=== PATIENT | male | born 1970 | race Caucasian/White ===

== ENCOUNTER 2021-12-15 14:25 | Observation (INO) | payer BC, SELFPAY ==
[2021-12-15] VITALS (13 sets, daily range): BP systolic 142–221; BP diastolic 73–122; PULSE 56–73; RESP 14–20; TEMP 36.6–36.8; O2SAT 95–100; BMI 29.9
--- NOTE | ~2021-12-15 | XR_ITS ---
EXAMINATION: XR chest 1V portable 12/15/2021 15:12 INDICATION: Hypertension PROCEDURE: AP portable chest COMPARISON: 08/13/2011 FINDINGS: The lungs are clear. The cardiomediastinal silhouette is within normal limits. There are no pleural effusions. There is no pneumothorax suspected. IMPRESSION: 1: NO ACUTE CARDIOPULMONARY DISEASE. Reviewed, dictated and finalized at location A.
--- NOTE | ~2021-12-15 | CT_ITS ---
EXAMINATION: CTA BRAIN/CAROTID DATE: 12/15/2021 16:08 INDICATION: Right-sided numbness TECHNIQUE: Computed tomographic angiography (CTA) of the head and neck was performed with 100 mL Omni paque-350 intravenous contrast. Multiplanar reconstructions and maximum intensity projection 3D-recon structions of the carotid arteries and of the intracranial arteries were created by the technologist on a separate workstation. Precontrast CT of the head was also obtained. Automated exposure control and iterative reconstruction technique were employed.The dose-length product was 1890.71 mGy-cm. COMPARISON: None. FINDINGS: Carotid arteries: Visualized portion of the thoracic arch and the portion of the great vessels appear normal with no at herosclerotic plaque or dissection. No atherosclerotic plaque with 0% stenosis of the right and left carotid bulbs relative to normal distal artery lumen diameter (NASCET criteria). Cervical soft tissue s are unremarkable. Mild cervical spondylosis. Visualized airway and bilateral upper lungs are clear. Head: No acute intracranial hemorrhage, acute infarction or abnormal extra axial fluid collection. Ventricl es are normal and symmetric. No mass/mass effect. Mild mucosal thickening in the paranasal sinuses. T he orbits and mastoid air cells are normal. No abnormally enhancing brain lesions. Intracranial arteries Minimal nonhemodynamically significant atherosclerotic plaque at the critical portions of the bilater al intracranial internal carotid arteries. There is no hemodynamically significant stenosis in the ve rtebral, basilar and internal carotid arteries. Left vertebral artery is dominant. There are no aneur ysms identified. Both A1 and P1 segments are patent. Cerebral arterial arborization appears symmetr ic. IMPRESSION: 1. 0% stenosis of the right and left carotid bulbs relative to normal distal artery lumen diameter (N ASCET criteria). 2. No acute intracranial process. 3. Unremarkable cerebral CT angiogram with no aneurysm, dissection or significant stenosis. Reviewed, dictated and finalized at location B. IMPRESSION: 1. 0% stenosis of the right and left carotid bulbs relative to normal distal ar [place] lumen diameter (NASCET criteria). 2. No acute intracranial process. 3. Unremarkable cerebral CT angiogram with no aneurysm, dissection or significa nt stenosis.
--- NOTE | ~2021-12-15 | MR_ITS ---
EXAMINATION: MR brain/brain stem wo con DATE: 12/16/2021 10:48 INDICATION: Paresthesias. TECHNIQUE: Magnetic resonance imaging (MRI) of the brain and brainstem was performed without intraven ous contrast. COMPARISON: Head CT 12/15/2021 FINDINGS: There is no intracranial hemorrhage, acute infarction, or abnormal intracranial mass lesion . The ventricles are normal in size. There is mild mucosal thickening in the paranasal sinuses. The o rbits are normal. The mastoid air cells are normal. IMPRESSION: 1. Normal brain. Reviewed, dictated and finalized at location A. IMPRESSION: 1. Normal brain.
--- NOTE | 2021-12-15 14:55 | ECG_ITS ---
Measurements Intervals [place] Rate: 56 P: 7 MS: 119 QRS: -19 QRSD: 96 T: 30 QT: 440 QTc: 425 Interpretive Statements SINUS BRADYCARDIA WITH SHORT MS INTERVAL DELAYED PRECORDIAL R/S TRANSITION BASELINE WANDER- I, II BORDERLINE ECG Electronically Signed On 12-15-2021 17:21:56 CDT by Jose Orozco D.O.
--- NOTE | 2021-12-15 14:58 | ED.NEUROSD ---
HPI - Neuro Symptoms/Deficit General Chief Complaint: Neuro Symptoms/Deficit Stated Complaint: tingling and numbness in arms and lips Time Seen by Provider: 12/15/21 14:40 Source: patient, RN notes reviewed and old records reviewed Mode of arrival: ambulatory Limitations: no limitations History of Present Illness HPI Narrative: This is a 51 year old male who presents for evaluation of body tingling. Patient states he has been having intermittent episodes of tingling. He states 1 week ago he had tingling both arms and both legs. HE states this last 3-4 minutes. He has had 2 similar episodes today, but he reports tingling is more on his right arm. He states he had an episode 1 hour ago when he was at urgent care. He reported having tingling around his mouth and right arm tingling. He denies having new headache, dizziness, blurred vision, chest pain, sob, abdominal pain. He denies having associated weakness with his tingling. His symptoms have completely resolved now. He has been found to be hypertensive in ER and he states his BP is usually normal in 130s. He denies family history of heart disease, or aneursym Onset (ago): week(s) Associated symptoms: denies other symptoms Related Data Allergies Allergy/AdvReac Type Severity Reaction Status Date / Time No Known Allergies Allergy Unverified 12/15/21 14:42 Review of Systems Review of Systems: All systems reviewed & are unremarkable except as noted in HPI and below Constitutional: Constitutional: Denies chills, Denies fatigue and Denies fever(s) ENT: Denies dysphagia and Denies epistaxis Cardiovascular: Cardiovascular: Denies chest pain, Denies rapid heart rate and Denies radiating jaw, neck or arm pain Respiratory: Respiratory: Denies chest congestion, Denies cough and Denies dyspnea Gastrointestinal: Gastrointestinal: Denies abdominal pain, Denies bloating, Denies constipation and Denies heartburn Musculoskeletal: Musculoskeletal: Denies muscle cramps Neurologic: Denies confusion, Denies dizziness, Denies headache(s), Denies focal weakness and Reports numbness PMFSH Past Medical History Medical History (Updated 12/15/21 @ 18:48 by Marla Hale MD) Patient denies medical problems Family History Family History (Updated 08/24/17 @ 13:59 by DOCTOR UNKNOWN) Father Family history of transient ischemic attacks Family history of heart disease in male family member before age 55 Grandparent Family history of heart disease in male family member before age 55, Onset Age: 60 Mother Asthma Other Family history of alcoholism Social History Social History Smoking status: Never smoker Alcohol intake: current Exam Narrative: GENERAL: Well-appearing, well-nourished, and in no acute distress. HEAD: Normocephalic, atraumatic EYES: PERRLA and EOMI, conjunctiva clear without discharge EARS: TM's clear bilaterally without erythema or dullness NOSE: Nares clear, no rhinorrhea or epistaxis THROAT:Mucous membranes moist, Oropharynx normal without erythema, exudate, peritonsillar swelling or fluctuance NECK: Supple, without lymphadenopathy or mass RESPIRATORY: No respiratory distress, Airway patent, Respirations non-labored, Clear to auscultation without rales, rhonchi or wheeze HEART: Regular rate and rhythm. No murmur heard. Normal peripheral pulses. ABDOMEN: Soft, nontender, nondistended, normal active bowel sounds. No masses. No rebound or guarding, No organomegaly. EXTREMITIES: No edema, normal strength with full range of motion. SKIN: Warm, dry, normal color without rash NEURO: Alert and oriented x3. CN 2-12 grossly intact. No focal deficits. PSYCH: Normal mood and affect. Course Reevaluation(s) Reevaluation #1: I Discussed with patient that he will be admitted for uncontrolled hypertension. HE does not have symptoms now. I discussed with jose who accepts patient to hospitalist service on IMU. Will start amlodop
[2021-12-15] MEDS: hydrALAZINE HCL 20 MG/ML VIAL 10 MG IV PUSH ×2 (15:13→17:19)
[2021-12-15 15:30] LABS: Basophils Percent Auto 0.5 % (0.2-1.2); Eosinophils Absolute Auto 0.2 K/mm3 (0-0.3); Eosinophils Percent Auto 2.6 % (0-4.4); Hematocrit 48.6 % (42.0-52.0); Hemoglobin 16.5 g/dL (14.0-18.0); Immature Granulocyte Absolute 0.01 K/mm3 (0.00-0.031); Immature Granulocyte Percent A 0.2 % (0-0.5); Lymphocytes Absolute Auto 1.75 K/mm3 (0.9-3.2); Lymphocytes Percent Auto 26.9 % (18.3-44.2); Mean Corpuscular Hemoglobin 31.4 pg (26-34); Mean Corpuscular Volume 92.4 fl (80-100); Monocytes Absolute Auto 0.5 K/mm3 (0.1-0.6); Monocytes Percent Auto 7.1 % (2.6-8.5); Neutrophils Absolute Auto 4.1 K/mm3 (1.3-6.7); Neutrophils Percent Auto 62.7 % (45.5-73.1); Platelet Count Result 164 k/mm3 (150-375); Red Blood Count 5.26 M/mm3 (4.6-6.20); Red Cell Distribution Width 12.4 % (11.5-14.5); White Blood Count 6.5 K/mm3 (4.5-10.0)
[2021-12-15 15:37] LABS: Alanine Aminotransferase 31 U/L (6-50); Albumin Level 4.7 g/dL (3.5-5.1); Alkaline Phosphatase 58 U/L (38-126); Anion Gap 8 mmol/L (8-16); Aspartate Amino Transferase 30 U/L (17-59); Bilirubin,Total 1.8 mg/dL (0.2-1.3); Blood Urea Nitrogen 17 mg/dL (9-20); Calcium 8.9 mg/dL (8.4-10.2); Carbon Dioxide 26 mmol/L (22-30); Chloride 107 mmol/L (98-107); Estimated CRCL calculation 100 ml/min; Estimated Glomerular Filt Rate > 60; Glucose 91 mg/dL (65-110); Magnesium 1.9 mg/dL (1.6-2.3); Potassium 4.1 mmol/L (3.4-5.0); Sodium 141 mmol/L (137-145)
[2021-12-15 15:39] LABS: INR 1.1; Prothrombin Time 13.5 Seconds (11.1-14.7)
[2021-12-15 15:40] LABS: Partial Thromboplastin Time 26.4 SECONDS (22.3-36.8)
[2021-12-15 15:41] LABS: Glucose Point of Care 94 mg/dl (65-105)
[2021-12-15 15:52] LABS: Troponin I 0.042 ng/mL (0.000-0.034)
[2021-12-15 15:54] LABS: Appearance Urine Clear (Clear); Bilirubin Urine Negative (Negative); Blood Urine Negative (Negative); Color Urine Yellow (Yellow); Glucose Urine UA Negative (Negative); Ketones Urine 2+ mg/dL (Negative); Leukocyte Esterase Ur Negative LEU/UL (Negative); Nitrate Urine Negative (Negative); Protein Urine Negative (Negative); Specific Grav Ur 1.025 (1.001-1.035); Urobilinogen Urine 0.2 mg/dL (<2.0)
[2021-12-15 15:57] LABS: Bacteria Urine Trace /hpf; Mucus Urine Rare /lpf; WBC Urine 0-3 /hpf
[2021-12-15 15:58] LABS: Add Urine Microscopic? YES
[2021-12-15 16:08] LABS: Amphetamine Screen Urine Negative (Negative); Barbiturate Screen Urine Negative (Negative); Benzodiazepines Screen Urine Negative (Negative); Cannabinoid Screen Urine Negative (Negative); Cocaine Screen Urine Negative (Negative); Methadone Screen Urine Negative (Negative); Opiate Screen Urine Negative (Negative); Phencyclidine Screen Urine Negative (Negative)
[2021-12-15] MEDS: amLODIPine BESYLATE 5 MG TABLET 10 MG PO (17:17)
[2021-12-15] MEDS: ASPIRIN 81 MG CHEWABLE TABLET 324 MG PO (17:17)
--- NOTE | 2021-12-15 19:36 | PC.NURSE ---
Dr Hale aware of elevated BP.
[2021-12-15] MEDS: LABETALOL HCL INJ 100 MG/20 ML VIAL 20 MG IV PUSH (19:38)
--- NOTE | 2021-12-15 20:08 | PM.IMHP ---
H&P: HPI History of Present Illness Date/Time: 12/15/21 20:08 Chief Complaint: Numbness Narrative: This is a 51-year-old male with past medical history significant for hypertension, patient presents to the emergency room due to several episodes of numbness and tingling in of his right arm and around his mouth. Upon presentation to the emergency room patient was found to have a systolic blood pressure above 200. At the time of my visit patient had a headache he had received several medications in the emergency room for his blood pressure, denied numbness and tingling sensation at that time, according to patient he has been in his usual state of health up until last week when he started having these episodes on and he decided to go to the urgent care where he was asked to come to the emergency room for further evaluation. Patient denies any chest pain, shortness of breath, had some dizziness, denies any vision changes, denies syncope, near syncope, denies any leg swelling or ankle swelling, denies cough, sputum production, fever, rigors, chills, denies palpitations, denies chest pain or discomfort. Preliminary workup was significant for slight elevation of troponins. Patient has been admitted for further evaluation, management and treatment. Review of Systems Review of Systems: Patient presents to the emergency room after episode of numbness, tingling, in his arms, and around his mouth, chest discomfort. Constitutional: Constitutional: Denies chills, Denies fever(s) and Denies night sweats ENT: Denies dysphagia, Denies vertigo, Denies dizziness, Denies nasal congestion, Denies nasal discharge, Denies nasal obstruction, Denies neck pain and Denies odynophagia Cardiovascular: Cardiovascular: Denies chest pain, Denies syncope, Denies pedal edema, Denies irregular heart rhythm, Denies claudication, Denies lightheadedness, Denies radiating jaw, neck or arm pain, Denies palpitations and Denies dyspnea on exertion Respiratory: Respiratory: Denies chest congestion, Denies cough, Denies pain on inspiration and Denies dyspnea Gastrointestinal: Gastrointestinal: Denies abdominal pain, Denies dyspepsia, Denies heartburn, Denies nausea and Denies vomiting Genitourinary: Genitourinary: Denies dysuria Musculoskeletal: Musculoskeletal: Denies arthralgias, Denies limited range of motion and Denies muscle weakness Integumentary/Breasts: Skin/Breast: Denies rash Neurologic: Denies focal weakness, Reports numbness (Bilateral upper extremities arms hands fingers), Reports tingling and Reports paresthesias Psychiatric: Psychiatric: Reports no additional psychiatric complaints and Reports as per HPI Endocrine: Endocrine: Denies cold intolerance, Denies fatigue, Denies flushing, Denies heat intolerance, Denies polyphagia, Denies polydipsia and Denies palpitations Hematologic/Lymphatic: Hematologic/Lymphatic: Reports no additional hematologic/lymphatic complaints and Reports as per HPI Allergic/Immunologic: Allergic/Immunologic: Reports no additional allergic/immunologic complaints and Reports as per HPI PMFSH Past Medical History Medical History (Updated 12/16/21 @ 04:33 by Susie Vazquez MD) Patient denies medical problems Family History Family History (Updated 12/15/21 @ 20:57 by Fabi Reyes RN) Father Family history of transient ischemic attacks Family history of heart disease in male family member before age 55 Grandparent Family history of heart disease in male family member before age 55, Onset Age: 60 Mother Asthma Sibling Hypertension Other Family history of alcoholism Social History Social History Smoking status: Never smoker Alcohol intake: current Drinks per week: 14 Substance use: never Spiritual care concerns: No Meds Home Medications and Allergies Home Medications Medication Instructions Recorded Confirmed Type omeprazole 40 mg capsule,delayed 40 cap PO DAILY 12/15/21
[2021-12-15 21:20] LABS: Troponin I 0.068 ng/mL (0.000-0.034)
--- NOTE | 2021-12-15 21:23 | ADMGEN ---
This patient, Jerman Bass, was admitted to IMU Room 214-01 at 2044. Patient/family oriented to hospital policies and general routines including ID bracelet, bed and alarms, visiting hours, pain management, procedures, bathroom and other care routines, personal items, smoking policy, room service/diet, and visiting hours. Information on how to activate the Rapid Response Team has been discussed. Patient/Family are encouraged to report perceived risks to care and to ask questions if they do not understand what they are told or what they should do.
[2021-12-15 23:18] LABS: Troponin I 0.081 ng/mL (0.000-0.034)
[2021-12-16] VITALS (11 sets, daily range): BP systolic 117–149; BP diastolic 51–91; PULSE 56–74; RESP 18; TEMP 36.3–36.7; O2SAT 97–99
--- NOTE | 2021-12-16 | ECHO_ITS ---
Patient Info Name: Jerman Bass Age: 51 years : 1970 Gender: Male Ht: 70 in Wt: 208 lbs BSA: 2.18 m2 HR: 57 bpm BP: 117 / 51 mmHg Heart Rhythm: Sinus Rhythm Technical Quality: Fair Exam Date: 12/16/2021 8:11 AM Exam Location: [facility] Patient Status: Outpatient Admit Date: 12/15/2021 Staff Ordering Physician: Susie Vazquez MD Ocular Care Technician: Mikayla Correa RDCS Attending Provider: Jonathan Vaca MD Referring Physician: Taylor MENDIOLA; Exam Type: CA echo doppler color flow Study Info Indications - Uncontrolled HTN Complete two-dimensional, color flow and Doppler transthoracic echocardiogram is performed. Summary 1. Complete two-dimensional, color flow and Doppler transthoracic echocardiogram is performed. 2. There is mild pulmonic regurgitation. 3. Otherwise normal examination. Left Ventricle Left ventricular chamber dimension is normal. Left ventricular systolic function is hyperdynamic, estimated at >70%. The left ventricular diastolic function is normal. Right Ventricle Right ventricular chamber dimension is normal. Left Atria Left atrial chamber dimension is normal. Right Atria Right atrial chamber dimension is normal. Aortic Valve The aortic valve is normal. Pulmonic Valve The pulmonic valve is normal. There is mild pulmonic regurgitation. Mitral Valve The mitral valve has normal leaflets. Tricuspid Valve The tricuspid valve leaflets are normal. Pericardium/Pleural The pericardium appears normal. Aorta The aortic root size at the sinus of Valsalva is normal. Left Ventricular Outflow Tract Name Value Normal LVOT 2D LVOT Diameter 2.0 cm LVOT Doppler LVOT Peak Gradient 7 mmHg LVOT Mean Gradient 4 mmHg LVOT VTI 30 cm LVOT VTI/AV VTI Ratio 0.9 LVOT Stroke Volume 90 ml LVOT CO 5.1 l/min LVOT CI 2.4 l/min/m2 Pulmonic Valve Name Value Normal RVOT Doppler RVOT Peak Gradient 3 mmHg PV Doppler PV Peak Gradient 5 mmHg Mitral Valve Name Value Normal MV Doppler MV Decel [place] 285 cm/s2 MV PHT 70 ms MV Area (PHT) 3.1 cm2 4.0-5.0 MV Diastolic Function
--- NOTE | 2021-12-16 09:31 | PM.CNCAR ---
Assessment and Plan Assessment and plan (1) Elevated troponin: Code(s): R77.8 - Other specified abnormalities of plasma proteins Status: Acute Plan This is a 51-year-old patient who presents with symptoms of tingling/paresthesias intermittently for a number of days. The symptoms are not suggestive of or indicative of myocardial ischemia in my opinion. His electrocardiogram shows no ischemic changes his troponin levels were done as I described above they are slightly out of normal range but not in a pattern typical or indicative of ACS. His echocardiogram was done this morning because of these symptoms which is appropriate the results of that are not available as I dictate this note. I think it is also very important that his carotid arteries are exam and these could be symptoms of carotid disease. He does not require in my opinion a workup for ischemic heart disease. Did have a negative coronary angiogram as he stated above about 9 or 10 years ago. If you have further questions regarding this opinion in the troponin results please let me know at this point I will not plan on following this gentleman unless there are further cardiac questions Minor Mane MD [facility] History of Present Illness History of Present Illness Consult date/time: 12/16/21 09:31 Reason For Visit: Troponinemia Narrative: This is a 51-year-old man that I am seeing at the request of the hospitalist because of troponin levels that were sampled and were found to be out of normal range. The patient has no history of ischemic heart disease and came to the hospital because of intermittent symptoms of the sense of tingling/paresthesias that began recently. He had an episode last week that he describes the sense of strange paresthesias in both upper extremities, across the chest into the face and into the lower extremities. This lasted for a short time and resolve without further treatment or intervention. Yesterday he had 2 episodes of this that were different in the sense that they were in the right upper extremity and into the face in the perioral region. Each of episode lasted for several minutes. Because of this he went to an urgent care center and they directed him apparently to the emergency department where he was evaluated and admitted. His admitting electrocardiogram was unremarkable. For reasons that are not obvious troponin levels were done x3 sets they are slightly elevated but essentially flat from 0.04-0.08. He is not having any sense of chest pain chest pressure or heaviness he is a gentleman who does not exercise in any structured way but with physical activity he has not noticed that chest discomfort has ever been a problem. He has been feeling well since being admitted. He normally sees his PCP and really only has hypertension as his only significant medical problem for which he takes carvedilol and terazocin. He is compliant with his medication and states that his blood pressure is generally well controlled. He denies any history of dyslipidemia or diabetes. He states he did have a cardiac evaluation about 9 or 10 years ago when he had some symptoms of occasional palpitations and intermittent chest discomfort. He states that he was seen by my partner, Dr. Dial who performed a coronary angiogram on him over at [facility] which was unremarkable. Since admission here an echocardiogram has been ordered and performed this morning of course the results of that are pending at the time I dictate this note. He also has carotid artery Dopplers ordered that have not yet been done. Review of Systems Constitutional: Constitutional: Reports no additional constitutional complaints Eyes: Eyes: Reports no additional eye complaints ENT: Reports system reviewed and no additional complaints, except as documented Cardiovascular: Cardiovascular: Reports as per HPI Respiratory: Respiratory: Reports no additional respiratory complaints Gastroi
[2021-12-16] MEDS: carvediloL 25 MG TABLET PO (10:23)
[2021-12-16] MEDS: PANTOPRAZOLE 40 MG TABLET PO (10:23)
[2021-12-16] MEDS: TERAZOSIN HCL 5 MG CAPSULE PO (10:23)
--- NOTE | 2021-12-16 12:50 | PM.DS ---
DS: Admitting Diagnosis Discharge Date 12/16/21 Admitting Diagnosis Body tingling DS: Discharge Diagnosis Discharge Diagnosis (1) Hypertensive emergency without congestive heart failure: Code(s): I16.1 - Hypertensive emergency Status: Acute (2) Elevated troponin: Code(s): R77.8 - Other specified abnormalities of plasma proteins Status: Acute (3) TIA (transient ischemic attack): Code(s): G45.9 - Transient cerebral ischemic attack, unspecified Status: Acute DS: Summary Hospital Course Reason for hospitalization: 51yo male with HTN here for body tingling and found to have a blood pressure 221/122. Please see H&P for details Hospital Course: Patient presents to the emergency room with complaints tingling in his arms and legs. Symptoms have been going on for about a week. Symptoms usually last about 3-4 minutes. He does have high blood pressure has been compliant with his home medications. He last took his blood pressure about 3 months ago with a systolic about 150. He does not adhere to a DASH diet. In the ED, patient's blood pressure was elevated to as high as 221/122. EKG showed sinus bradycardia rate of 56 with a short NV interval and delayed precordial transition. CBC was normal. CMP was normal except for a total bilirubin 1.8. Troponin was elevated to 0.081. Urinalysis showed 2+ ketones otherwise negative. Urine drug screen was negative. Chest x-ray was clear. CTA of the head and neck showed 0% stenosis of the right and left carotid bulbs and there was no acute intracranial process. Specifically no aneurysms, dissection or significant stenosis. Brain MRI was normal. Echocardiogram was normal as well. Patient was treated with hydralazine, amlodipine and labetalol. He was given aspirin. Blood pressure dropped to 117/51. Patient feels well. Cardiology was consulted did not recommend any further cardiac evaluation regarding the elevated troponins. The elevated troponins most likely related to the severe hypertension. Patient does have anxiety related to his work but states that his presenting symptoms occurred when he was relaxed. Symptoms were associated with headache and feeling flushed but no tachycardia, palpitations, tremors, shortness of breath or weakness. Patient is low risk for pheochromocytoma but is agreeable for 24 hour urine collection to exclude this diagnosis. This can be performed at home. Mild hyperbilirubinemia most likely related to [place]. Will defer to the primary care doctor for further evaluation regarding the elevated bilirubin level. He has no abdominal pain or other concerning symptoms to suggest gallbladder disease. We will continue his home medications at discharge. Will be sent home with losartan and was instructed only to uses if his blood pressure gets above 180 systolic. He is to check his blood pressure 2 to 3 times per day at various times, record and bring into his doctor for review. He voices understanding of this. He has had an abnormal sleep study last year and wears a dental appliance. Consider uncontrolled apnea causing uncontrolled blood pressure and will defer to his PCP. Status at Discharge Cognitive/behavioral status at discharge: Stable Time Spent with Patient Time attestation: Total time spent providing and/or coordinating discharge services: 35 minutes Exam Narrative: AF 97.5 117/87 74 18 99% ra Gen - NARD Chest - CTA bilaterally, nml RR CV - RRR S1/S2. Tele showing no significant dysrhythmias Abd - Soft, NT/ND, Positive BS Ext - No pedal edema Neuro - Alert and oriented. Nonfocal exam. Psych - Nml mood and affect Skin - Warm and dry DS: Data Data Completed and Pending Labs on day of discharge: Labs from last 24 hours 12/15/21 12/15/21 12/15/21 22:45 20:37 15:38 WBC RBC Hgb Hct MCV MCH MCHC RDW Plt Count MPV Immature Gran % (Auto) Neut % (Auto) L
== END 2021-12-16 15:14 | disposition home or self-care (01) ==
LOC: ANHED 18:48 → ANHIMU 20:44
PROVIDERS: Emergency Medicine; Admitting Provider Internal Medicine; Emergency Provider General Practice; PCP Nurse Practitioner Family; Visit Provider Internal Medicine
DX: G45.9 Transient cerebral ischemic attack, unspecified (principal); I16.1 Hypertensive emergency; R77.8 Other specified abnormalities of plasma proteins; I10 Essential (primary) hypertension; R20.2 Paresthesia of skin
CPT/HCPCS: 36415; 70496; 70498; 70551; 71045; 80053; 80307; 81001; 82948; 83735; 84484; 85025; 85610; 85730; 93005; 93306; 96374; 96375; 96376; 99285; A9270; G0378; J0360; Q9967

== ENCOUNTER 2021-12-18 12:37 | Outpatient (CLI) | payer BC, SELFPAY ==
[2021-12-18 13:20] LABS: Total Volume 24 Hour Urine 1300 ml
[2021-12-18 13:42] LABS: Creatinine 24 Hour Urine 2.1 gm/24 (1.0-2.0); Creatinine Urine 167.3 mg/dL
[2021-12-23 13:20] LABS: Calculated Total (E+NE) 50 mcg/24 h (26-121); Dopamine, 24hr Urine 242 mcg/24 h (52-480); Norepinephrine, 24hr Urine 50 mcg/24 h (15-100)
== END 2021-12-18 12:38 | disposition home or self-care (01) ==
PROVIDERS: PCP Nurse Practitioner Family; Visit Provider Internal Medicine
DX: I16.1 Hypertensive emergency (principal)
CPT/HCPCS: 81050; 82384; 82570; 83835

== ENCOUNTER 2022-11-22 11:32 | Emergency (ER) | payer BC, SELFPAY ==
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
[2022-11-22 11:42] VITALS: BP 136/79; PULSE 56; RESP 16; TEMP 36.8; O2SAT 98
== END 2022-11-22 12:31 | disposition home or self-care (01) ==
LOC: EXPCOLL 11:38
PROVIDERS: Emergency Provider Nurse Practitioner Family; PCP Family Medicine Sports Medicine
DX: S22.31XA Fracture of one rib, right side, initial encounter for closed fracture (principal); V86.96XA Unspecified occupant of dirt bike or motor/cross bike injured in nontraffic accident, initial encounter
CPT/HCPCS: 71101; 73502; 99214; G0463

== ENCOUNTER 2023-05-16 10:42 | Observation (INO) | payer BC, SELFPAY ==
[2023-05-16] VITALS (38 sets, daily range): BP systolic 128–185; BP diastolic 72–125; PULSE 62–116; RESP 10–25; TEMP 35.8–36.7; O2SAT 96–100; BMI 30.5
--- NOTE | ~2023-05-16 | XR_ITS ---
EXAMINATION: XR chest 2V DATE: 05/16/2023 11:20 INDICATION: Chest tightness and palpitations TECHNIQUE: PA and lateral views of the chest were obtained. COMPARISON: Chest radiograph dated 12/15/2021 FINDINGS: The lungs remain clear with no focal airspace opacities, pulmonary edema, pleural effusion or pneumot horax. The cardiomediastinal silhouette is normal. Mild thoracic dextrocurvature with mild spondylosi s. IMPRESSION: 1. No acute cardiopulmonary disease. Reviewed, dictated and finalized at location A.
--- NOTE | 2023-05-16 10:58 | ECG_ITS ---
Measurements Intervals [place] Rate: 93 P: ID: 0 QRS: -29 QRSD: 93 T: 24 QT: 355 QTc: 442 Interpretive Statements ATRIAL FIBRILLATION WITH ABERRANT CONDUCTION OR VENTRICULAR PREMATURE COMPLEXES BORDERLINE LEFT AXIS DEVIATION [QRS AXIS < -20] ABNORMAL RHYTHM ECG COMPARED TO ECG 12/15/2021 14:44:32 ATRIAL FIBRILLATION NOW PRESENT Electronically Signed On 05-16-2023 14:55:06 CDT by Minor Mane M.D.
[2023-05-16 11:12] LABS: Basophils Percent Auto 0.5 % (0.2-1.2); Eosinophils Absolute Auto 0.2 K/mm3 (0-0.3); Eosinophils Percent Auto 3.3 % (0-4.4); Hematocrit 49.9 % (42.0-52.0); Hemoglobin 16.8 g/dL (14.0-18.0); Immature Granulocyte Absolute 0.01 K/mm3 (0.00-0.031); Immature Granulocyte Percent A 0.2 % (0-0.5); Lymphocytes Absolute Auto 1.84 K/mm3 (0.9-3.2); Lymphocytes Percent Auto 27.7 % (18.3-44.2); Mean Corpuscular HGB Conc 33.7 g/dl (32-36); Mean Corpuscular Hemoglobin 31.5 pg (26-34); Mean Corpuscular Volume 93.6 fl (80-100); Mean Platelet Volume 11.6 fl (7.4-10.4); Monocytes Absolute Auto 0.5 K/mm3 (0.1-0.6); Monocytes Percent Auto 6.9 % (2.6-8.5); Neutrophils Absolute Auto 4.1 K/mm3 (1.3-6.7); Neutrophils Percent Auto 61.4 % (45.5-73.1); Platelet Count Result 169 k/mm3 (150-375); Red Blood Count 5.33 M/mm3 (4.6-6.20); Red Cell Distribution Width 12.6 % (11.5-14.5); White Blood Count 6.6 K/mm3 (4.5-10.0)
[2023-05-16 11:23] LABS: Alanine Aminotransferase 38 U/L (6-50); Albumin Level 4.8 g/dL (3.5-5.1); Alkaline Phosphatase 54 U/L (38-126); Anion Gap 6 mmol/L (8-16); Aspartate Amino Transferase 33 U/L (17-59); Bilirubin,Total 1.2 mg/dL (0.2-1.3); Blood Urea Nitrogen 16 mg/dL (9-20); Calcium 9.3 mg/dL (8.4-10.2); Carbon Dioxide 31 mmol/L (22-30); Chloride 103 mmol/L (98-107); Estimated CRCL calculation 101 ml/min; Estimated Glomerular Filt Rate > 60; Glucose 110 mg/dL (65-110); Lipase 42 U/L (23-300); Potassium 3.8 mmol/L (3.4-5.0); Prothrombin Time 13.4 Seconds (11.1-14.7); Sodium 140 mmol/L (137-145)
[2023-05-16 11:24] LABS: Partial Thromboplastin Time 23.2 SECONDS (22.3-36.8)
[2023-05-16 11:38] LABS: Troponin I 0.039 ng/mL (0.000-0.034)
--- NOTE | 2023-05-16 12:09 | ECG_ITS ---
Measurements Intervals [place] Rate: 85 P: [place]: 0 QRS: -30 QRSD: 105 T: 31 QT: 363 QTc: 433 Interpretive Statements ATRIAL FIBRILLATION LOW-VOLTAGE QRS IN THE LIMB LEADS BORDERLINE LEFT AXIS DEVIATION [QRS AXIS < -20] ABNORMAL RHYTHM ECG COMPARED TO ECG 05/16/2023 10:56:58 NO SIGNIFICANT CHANGES Electronically Signed On 05-16-2023 14:58:08 CDT by Minor Mane M.D.
--- NOTE | 2023-05-16 12:10 | ED.ARRPALP ---
HPI - Arrhythmia/Palpitations General Chief Complaint: Arrhythmia/Palpitations Stated Complaint: palpitations Time Seen by Provider: 05/16/23 11:04 History of Present Illness HPI narrative: Pt presents with feeling of persistent palpitations over the last couple of days. Pt says he has a history of this but usually goes away but this time they have persisted. Pt also noticed some CP and SOB with exertion over the last couple of days which he has not experienced before which resolved with rest. Pt currently not having CP. Related Data Home Medications Medication Instructions Recorded Confirmed omeprazole 40 mg capsule,delayed 40 cap PO DAILY 12/15/21 05/16/23 release terazosin 5 mg capsule 5 mg PO HS 12/15/21 05/16/23 famotidine 40 mg tablet 40 mg PO HS 11/22/22 05/16/23 hydrochlorothiazide 12.5 mg tablet 12.5 mg PO DAILY 11/22/22 05/16/23 losartan 50 mg tablet 50 mg PO DAILY 05/16/23 05/16/23 Allergies Allergy/AdvReac Type Severity Reaction Status Date / Time No Known Allergies Allergy Verified 05/16/23 15:53 Review of Systems Review of Systems: All systems reviewed & are unremarkable except as noted in HPI and below PMFSH Past Medical History Medical History Hypertension, uncontrolled Family History Family History Father Family history of transient ischemic attacks Family history of heart disease in male family member before age 55 Family history of alcoholism Grandparent Family history of heart disease in male family member before age 55, Onset Age: 60 Mother Asthma Hypertension Sibling Hypertension Social History Social History Smoking status: Never smoker Alcohol intake: current Drinks per week: 14 Substance use: never Lack of Transportation: No Lack of Food: Never True Current Housing: I Have Housing Concerned About Future Housing: No Difficulty Paying Gas/Electric Bills: No Difficulty Paying for Meds: No Currently Unemployed: No Education: Decline to Answer Difficulty w/ Childcare or Family Care: No Spiritual care concerns: No Exam Const: General: healthy appearing and no acute distress Nutritional Appearance: well nourished Orientation/consciousness: patient oriented x3 Limitations: no limitations Chest: Chest palpation & inspection: normal inspection of the chest Resp: Effort & Inspection: normal respiratory effort Auscultation: clear to auscultation bilaterally Cardio: Rate: regular rate Rhythm: abnormal rhythm with ectopic beats GI: Auscultation: normal bowel sounds Skin: General skin exam: normal color Wounds: no wounds Neuro: General: patient oriented x3, moves all extremities and no focal motor deficits Speech: normal speech Extrem: General: normal to inspection Psych: Mental Status: mental status grossly normal Affect: normal affect Attitude: cooperative Course Vital Signs Vital signs: Vital Signs Temperature 98.1 F 05/16/23 10:48 Pulse Rate 92 05/16/23 10:48 Respiratory Rate 13 05/16/23 10:48 Blood Pressure 185/125 H 05/16/23 10:48 Pulse Oximetry 99 05/16/23 10:48 Oxygen Delivery Room Air 05/16/23 10:48 Temperature 96.5 F L 05/16/23 15:56 Pulse Rate 68 05/16/23 18:01 Respiratory Rate 20 05/16/23 15:56 Blood Pressure 145/88 H 05/16/23 15:56 Pulse Oximetry 99 05/16/23 15:53 Oxygen Delivery Room Air 05/16/23 10:48 MDM - Arrhythmia/Palpitations MDM Narrative Medical decision making narrative: ekg shows a fib rate controlled no st or t wave changes. will get labs and repeat ekg. pt has elevated trop, lytes look ok. will need to be admitted for new onset a fib. discussed with Kyle Ortega agrees to admit. discussed with Chhaya Bean agrees to consult will notify Dr Jenkins Differential Diagno
[2023-05-16] MEDS: ASPIRIN 81 MG CHEWABLE TABLET 324 MG PO (13:32)
--- NOTE | 2023-05-16 14:07 | PM.IMHP ---
H&P: HPI History of Present Illness Date/Time: 05/16/23 14:07 Chief Complaint: New onset atrial fibrillation with palpitations and exertional chest pain Narrative: This is a 53-year-old male patient with a past history of hypertension on multiple antihypertensive medications who developed an irregular pounding heartbeat at 9:30 p.m. last night that was also associated with exertional chest pain that resolved with rest. Patient states that he was sitting on the couch when he felt his heart beat pounding and irregular. He walked up the stairs home and developed significant midsternal chest pain that resolved when he sat down. Patient states that multiple times throughout the night whenever he would get to go use the bathroom or doing any activity he would have return of chest pain that would reside whenever he rested. Around 5:00 a.m. this morning he got up and went to the restroom and had no further episodes of chest pain since then. He still notes that his heart is beating somewhat erratically. Patient reports a past history occasional palpitations was previously evaluated and found to be benign PVCs. Patient reports that the irregularity that he felt starting last night profoundly different from anything he had experienced before. Patient is a nonsmoker. He does drink moderately. No history of diabetes or known high cholesterol. Review of Systems Review of Systems: All systems reviewed & are unremarkable except as noted in HPI and below PMFSH Past Medical History Medical History Hypertension, uncontrolled Family History Family History Father Family history of transient ischemic attacks Family history of heart disease in male family member before age 55 Family history of alcoholism Grandparent Family history of heart disease in male family member before age 55, Onset Age: 60 Mother Asthma Hypertension Sibling Hypertension Social History Social History Smoking status: Never smoker Alcohol intake: current Drinks per week: 14 Substance use: never Lack of Transportation: No Lack of Food: Never True Current Housing: I Have Housing Concerned About Future Housing: No Difficulty Paying Gas/Electric Bills: No Difficulty Paying for Meds: No Currently Unemployed: No Education: Decline to Answer Difficulty w/ Childcare or Family Care: No Spiritual care concerns: No Meds Home Medications and Allergies Home Medications Medication Instructions Recorded Confirmed Type omeprazole 40 mg capsule,delayed 40 cap PO DAILY 12/15/21 11/22/22 History release terazosin 5 mg capsule 5 mg PO DAILY 12/15/21 11/22/22 History carvedilol 25 mg tablet (Coreg) 25 mg PO Q12H #60 tabs 12/16/21 11/22/22 Rx losartan 25 mg tablet 25 mg PO DAILY PRN for blood 12/16/21 11/22/22 Rx pressure >180 #30 tabs famotidine 40 mg tablet 40 mg PO DAILY 11/22/22 11/22/22 History hydrochlorothiazide 12.5 mg tablet 12.5 mg PO DAILY 11/22/22 11/22/22 History Allergies Allergy/AdvReac Type Severity Reaction Status Date / Time No Known Allergies Allergy Verified 05/16/23 15:53 Vital Signs Vital Signs - 24 hr 05/16/23 10:48 05/16/23 10:59 05/16/23 10:56 Temperature 36.7 C Pulse Rate 92 95 75 Respiratory Rate 13 Blood Pressure 185/125 H Pulse Oximetry 99 100 Oxygen Delivery Room Air 05/16/23 11:00 05/16/23 11:01 05/16/23 11:20 Temperature Pulse Rate 88 80 101 H Respiratory Rate 14 13 12 Blood Pressure Pulse Oximetry 100 100 99 Oxygen Delivery 05/16/23 11:36 05/16/23 11:45 05/16/23 12:00 Temperature Pulse Rate Respiratory Rate Blood Pressure Pulse Oximetry 99 100 99 Oxygen Delivery 05/16/23 12:25 05/16/23 12:06 05/16/23 12:08 Temperature Pulse Rate 89 Respiratory
[2023-05-16 14:20] LABS: Troponin I 0.029 ng/mL (0.000-0.034)
[2023-05-16] MEDS: ENOXAPARIN 100 MG/ML SYRINGE SUB-Q (15:50)
--- NOTE | 2023-05-16 16:01 | ADMGEN ---
This patient, Jerman Bass, was admitted to IMU Room 214-01 @ 1445 .Patient/family oriented to hospital policies and general routines including ID bracelet, bed and alarms, visiting hours, pain management, procedures, bathroom and other care routines, personal items, smoking policy, room service/diet, and visiting hours. Information on how to activate the Rapid Response Team has been discussed. Patient/Family are encouraged to report perceived risks to care and to ask questions if they do not understand what they are told or what they should do.
--- NOTE | 2023-05-16 16:30 | ECG_ITS ---
Measurements Intervals [place] Rate: 68 P: 63 NE: 154 QRS: -26 QRSD: 91 T: 41 QT: 404 QTc: 430 Interpretive Statements SINUS RHYTHM BORDERLINE LEFT AXIS DEVIATION [QRS AXIS < -20] COMPARED TO ECG 05/16/2023 12:21:08 SINUS RHYTHM NOW PRESENT Electronically Signed On 05-17-2023 19:45:25 CDT by Cely Dial M.D.
[2023-05-16 17:05] LABS: Troponin I 0.027 ng/mL (0.000-0.034)
[2023-05-16] MEDS: carvediloL 25 MG TABLET PO (20:45)
[2023-05-16] MEDS: FAMOTIDINE 20 MG TABLET 40 MG PO (20:46)
[2023-05-16] MEDS: TERAZOSIN HCL 5 MG CAPSULE PO (20:46)
[2023-05-17] VITALS (13 sets, daily range): BP systolic 109–131; BP diastolic 64–75; PULSE 49–65; RESP 18–20; TEMP 35.6–36.6; O2SAT 96–100
[2023-05-17 05:12] LABS: Basophils Percent Auto 0.7 % (0.2-1.2); Eosinophils Absolute Auto 0.2 K/mm3 (0-0.3); Eosinophils Percent Auto 3.7 % (0-4.4); Hematocrit 44.4 % (42.0-52.0); Immature Platelet Fraction Pct 7.5 % (0.9-11.2); Lymphocytes Absolute Auto 1.88 K/mm3 (0.9-3.2); Lymphocytes Percent Auto 33.2 % (18.3-44.2); Mean Corpuscular HGB Conc 33.8 g/dl (32-36); Mean Corpuscular Hemoglobin 31.6 pg (26-34); Mean Corpuscular Volume 93.7 fl (80-100); Mean Platelet Volume 11.3 fl (7.4-10.4); Monocytes Absolute Auto 0.4 K/mm3 (0.1-0.6); Monocytes Percent Auto 7.2 % (2.6-8.5); Neutrophils Absolute Auto 3.1 K/mm3 (1.3-6.7); Neutrophils Percent Auto 55.2 % (45.5-73.1); Platelet Count Result 143 k/mm3 (150-375); Red Blood Count 4.74 M/mm3 (4.6-6.20); Red Cell Distribution Width 12.5 % (11.5-14.5); White Blood Count 5.7 K/mm3 (4.5-10.0)
[2023-05-17 05:31] LABS: LDL Cholesterol Direct 113 mg/dL
[2023-05-17 05:57] LABS: Alanine Aminotransferase 31 U/L (6-50); Albumin Level 3.8 g/dL (3.5-5.1); Alkaline Phosphatase 47 U/L (38-126); Anion Gap 5 mmol/L (8-16); Aspartate Amino Transferase 27 U/L (17-59); Bilirubin,Total 1.3 mg/dL (0.2-1.3); Blood Urea Nitrogen 19 mg/dL (9-20); Calcium 8.4 mg/dL (8.4-10.2); Carbon Dioxide 27 mmol/L (22-30); Chloride 103 mmol/L (98-107); Cholesterol 219 mg/dL (0-200); Estimated CRCL calculation 98 ml/min; Estimated Glomerular Filt Rate > 60; Glucose 106 mg/dL (65-110); Potassium 3.4 mmol/L (3.4-5.0); Sodium 135 mmol/L (137-145); Triglycerides 141 mg/dL (<150)
--- NOTE | 2023-05-17 06:00 | ECHO_ITS ---
Patient Info Name: Jerman Bass Age: 53 years : 1970 Gender: Male Ht: 70 in Wt: 215 lbs BSA: 2.22 m2 HR: 49 bpm BP: 109 / 64 mmHg Heart Rhythm: Sinus Rhythm Technical Quality: Good Exam Date: 05/17/2023 10:38 AM Exam Location: [facility] Card Pulmonary Patient Status: Outpatient Admit Date: 05/16/2023 Staff Ordering Physician: Joey Li DO Clinical Research Nurse Coordinator: Francis Roche RDCS Attending Provider: Minor Tamayo MD Referring Physician: Jen FAJARDO; Exam Type: CA echo doppler color flow Study Info Indications - New onset fib Complete two-dimensional, color flow and Doppler transthoracic echocardiogram is performed. Summary 1. Complete two-dimensional, color flow and Doppler transthoracic echocardiogram is performed. 2. Ventricular size with mild concentric hypertrophy. Good systolic function of all segments with ejection fraction 61%. Normal diastolic function. 3. Left atrial chamber dimension is mildly enlarged. 4. No pulmonary hypertension, estimated pulmonary arterial systolic pressure is 26 mmHg. 5. No significant valve disease. 6. Normal sinus rhythm. Left Ventricle Left ventricular chamber dimension is normal. Left ventricular systolic function is normal, estimated at 60-65%. There is mildly increased left ventricular wall thickness. Left ventricular septal wall motion is normal. The left ventricular diastolic function is normal. Right Ventricle Right ventricular chamber dimension is normal. Right ventricular systolic function is normal. Left Atria Left atrial chamber dimension is mildly enlarged. Right Atria Right atrial chamber dimension is normal. Aortic Valve The aortic valve is trileaflet. There is no aortic valve sclerosis. There is no aortic valve stenosis. There is no aortic valve regurgitation. Pulmonic Valve The pulmonic valve is normal. There is no pulmonic valve stenosis. There is no pulmonic regurgitation. Mitral Valve The mitral valve has normal leaflets. There is no mitral valve stenosis. There is trace mitral valve regurgitation. Tricuspid Valve The tricuspid valve leaflets are normal. There is no significant tricuspid valve stenosis. There is trace tricuspid valve regurgitation. No pulmonary hypertension, estimated pulmonary arterial systolic pressure is 26 mmHg. Pericardium/Pleural The pericardium appears normal. There is no pericardial effusion. Inferior Vena Cava Normal inferior vena cava with >50% collapse upon inspiration consistent with Empty right atrial pressure, 10 mmHg. Aorta The aortic root size at the sinus of Valsalva is normal. The prox ascending aorta size is normal. Left Ventricular Outflow Tract Name Value Normal LVOT 2D LVOT Diameter 1.9 cm LVOT Doppler LVOT Peak Gradient 4 mmHg LVOT Mean Gradient 3 mmHg LVOT VTI 29 cm LVOT VTI/AV VTI Ratio 1.0 LVOT Stroke Volume 79 ml LVOT CO 4.2 l/min LVOT CI 1.9 l/min/m2 Pulmonic Valve
[2023-05-17] MEDS: ENOXAPARIN 100 MG/ML SYRINGE SUB-Q (06:05)
[2023-05-17 06:14] LABS: HDL Direct 72 mg/dL
[2023-05-17] MEDS: PANTOPRAZOLE 40 MG TABLET PO (08:55)
[2023-05-17] MEDS: hydroCHLOROthiazide 12.5 MG CAPSULE PO (08:55)
[2023-05-17] MEDS: carvediloL 25 MG TABLET PO (08:55)
[2023-05-17] MEDS: LOSARTAN POTASSIUM 50 MG TABLET PO (08:55)
--- NOTE | 2023-05-17 09:14 | PM.IMPN ---
Progress Note: A&P Assessment and Plan (1) Atrial fibrillation: Code(s): I48.91 - Unspecified atrial fibrillation Status: Acute (2) Elevated troponin: Code(s): R79.89 - Other specified abnormal findings of blood chemistry Status: Acute (3) ACS (acute coronary syndrome): Code(s): I24.9 - Acute ischemic heart disease, unspecified Status: Acute Plan patient presented with palpitation persistent over the past couple of days some chest pain and shortness of breath with exertion of the past couple days. History of hypertension EKG in the ER showed AFib with controlled rate cbc CMP unremarkable troponin came back mildly elevated at 0.039. Lipase was normal. Chest x-ray with no acute cardiopulmonary disease cardiology has been consulted. Echo ordered which is pending. Continue Coreg spontaneously converted to sinus rhythm while in the hospital. Lovenox therapeutic dosing. Serial troponin remained negative. LDL 113. Received a dose of aspirin. Will resume 81 mg of aspirin daily. Await cardiac evaluation. Will check TSH Subjective Date/time seen: 05/17/23 09:14 Interval history: patient presented with palpitation persistent over the past couple of days some chest pain and shortness of breath with exertion of the past couple days. History of hypertension EKG in the ER showed AFib with controlled rate cbc CMP unremarkable troponin came back mildly elevated at 0.039. Lipase was normal. Chest x-ray with no acute cardiopulmonary disease cardiology has been consulted. Echo ordered which is pending. Continue Coreg spontaneously converted to sinus rhythm while in the hospital. Lovenox therapeutic dosing. Serial troponin remained negative. LDL 113. Received a dose of aspirin. Will resume 81 mg of aspirin daily. Await cardiac evaluation Review of Systems Review of Systems: All systems reviewed & are unremarkable except as noted in HPI and below Exam Narrative: GENERAL: Generally well appearing, alert and oriented, in no apparent distress. He is pleasant and conversant in full sentences. HEENT: Pupils are equally round and briskly reactive to light. Extraocular muscles are intact. Oral mucous membranes are moist without lesions. NECK: The patient has no noted JVD. No adenopathy is appreciated. CHEST/LUNGS: Lungs are clear bilaterally without rhonchi, rales, or wheezes. There is no subcutaneous air appreciated. There is no tenderness to the chest wall. HEART: Irregularly irregular rhythm with normal rate. No murmurs, rubs, or gallops are appreciated. Distal pulses are 2+. No carotid bruits appreciated. Bedside telemetry monitoring shows atrial fibrillation with rate 92 by my interpretation. ABDOMEN: The patient?s abdomen is soft, nontender, and nondistended. Bowel sounds are positive. No organomegaly is appreciated. No masses are appreciated. There are no peritoneal signs. There is no Dougherty?s sign. EXTREMITIES: The patient has no peripheral edema. There is no focal long bone tenderness or deformity. SKIN: The patient?s skin is warm and dry, without rashes or lesions. PSYCHIATRIC: The patient has normal mental status and has an appropriate affect. NEUROLOGIC: There are no gross deficits to the cranial nerves. Patient ambulates with steady gait. Objective Data Vital Signs Vital Signs: Vital Signs - 24 hr 05/16/23 10:48 05/16/23 10:59 05/16/23 10:56 Temperature 98.1 F Pulse Rate 92 95 75 Respiratory Rate 13 Blood Pressure 185/125 H Pulse Oximetry 99 100 Oxygen Delivery Room Air 05/16/23 11:00 05/16/23 11:01 05/16/23 11:20 Temperature Pulse Rate 88 80 101 H Respiratory Rate 14 13 12 Blood Pressure Pulse Oximetry 100 100 99 Oxygen Delivery 05/16/23 11:36 05/16/23 11:45 05/16/23 12:00 Temperature Pulse Rate Respiratory Rate Blood Pressure Pulse Oximetry 99 100 99 Oxygen Delivery 05/16/23 12:25 05/16/23 12:06 05/16/23 12:08 Temperature
--- NOTE | 2023-05-17 09:29 | PM.CNCAR ---
Assessment and Plan Assessment and plan (1) Atrial fibrillation: Code(s): I48.91 - Unspecified atrial fibrillation Status: Acute Assessment and Plan: New onset a fib, paroxysmal. Converted to NSR. HR mildly elevated on admission, taking carvedilol 25 mg BID. NOrmal LV fxn. May be due to HTN + ETOH + HERNAN. Counnseled pt extensively re: a fib, eval, tx options, CVA risk, etc. --[id number] score 1 --Start ASA 325 mg qd --Pt prefers not to take a med daily such as Multaq 400 mg BID --If pt has no ischemic heart disease, he may be able to use flecainide with a pill in the pocket approach. --If freq recurrences, than daily antiarrhythmic med and consider referral for ablation. --For now, OK to take an extra carvedilol prn for episodes --Pt will look into wearable technology or a fib Apps such as [employer] --PT will reduce/eliminate alcohol --OK for discharge (2) Elevated troponin: Code(s): R79.89 - Other specified abnormal findings of blood chemistry Status: Acute Assessment and Plan: Very mildly elevated top but had CP. NO CAD by cath 9 years ago and no sx at other times. --OPT stress Echo to eval for underlying CAD (my office contacted) (3) Hypertension, uncontrolled: Code(s): I10 - Essential (primary) hypertension Status: Acute Assessment and Plan: HTN, high on admission but improved. Labile at home. --Cont carvedilol, losartan, HCTZ History of Present Illness History of Present Illness Consult date/time: 05/17/23 09:29 Reason For Visit: New onset a fib Narrative: Jerman Bass is a 53 y.o. male whom we were asked to see by Dr. Li for advice and opinion regarding his new onset atrial fibrillation, chest pain and elevated troponin, in consultation. History of hypertension and PVCs.. Was admitted November for paresthesias and HTN and had mildly elevated troponins. He was seen by Dr. Mane who felt he did not need further cardiac workup. Mr. Bass is feeling palpitations similar to his benign PVCs on Tuesday but this time the palpitations did not stop. He had some central chest tightness. He came to the emergency room and he was in AFib, and his heart rate was 92-115. BP 140/80-185/125 mmHG. He converted to sinus rhythm yesterday evening. Feeling fine now, BP better and interested in going home. Pt is concerned about his labile BP. Pt walks 3-4 miles twice a week w/o CP or WEBSTER. Pt has borderline HERNAN and uses a dental appliance. Two alcoholic beverages/night. No hyperlipidemia, smoking, HERNAN diabetes or known heart disease. INfreq hemorrhoidal bleeding. Father had heart disease and in his 60's. Troponins 0.039, 0.029, 0.027, TSH normal Cholesterol 219, HDL 72, LDL 113, triglycerides 141 05/16/2023 EKG: AFib rate 85, left axis deviation, no ischemic changes, personally reviewed 05/16/2023 EKG at 4:51 p.m.: NSR rate 68, left axis deviation, personally reviewed I met pt 9 years ago; had an abnormal stress test but cath was normal. Review of Systems Constitutional: Constitutional: Denies fever(s) Eyes: Eyes: Reports no additional eye complaints ENT: Denies epistaxis Cardiovascular: Cardiovascular: Reports chest pain, Denies pedal edema, Denies lightheadedness, Reports palpitations and Denies dyspnea Respiratory: Respiratory: Denies chest congestion and Denies dyspnea Gastrointestinal: Gastrointestinal: Denies abdominal pain and Denies hematochezia Comments: Infrequent hemorrhoidal bleeing, no PUD Genitourinary: Genitourinary: Reports hematuria Musculoskeletal: Musculoskeletal: Reports no additional musculoskeletal complaints Integumentary/Breasts: Skin/Breast: Reports system reviewed and no additional complaints, except as docu Neurologic: Reports system reviewed and no additional complaints, except as documented and Denies behavioral changes Psychiatric: Psychiatric: Denies behavioral changes PMFSH Past Medical Histor
[2023-05-17] MEDS: ASPIRIN 81 MG ENTERIC TABLET PO (12:07)
--- NOTE | 2023-05-17 15:30 | PM.DS ---
DS: Admitting Diagnosis Discharge Date 05/17/2023 Admitting Diagnosis palpitation DS: Discharge Diagnosis Discharge Diagnosis (1) Atrial fibrillation: Code(s): I48.91 - Unspecified atrial fibrillation Status: Acute (2) Elevated troponin: Code(s): R79.89 - Other specified abnormal findings of blood chemistry Status: Acute (3) ACS (acute coronary syndrome): Code(s): I24.9 - Acute ischemic heart disease, unspecified Status: Acute DS: Summary Hospital Course Hospital Course: ?patient presented with palpitation persistent over the past couple of days some chest pain and shortness of breath with exertion of the past couple days.? History of hypertension EKG in the ER showed AFib with controlled rate cbc CMP unremarkable troponin came back mildly elevated at 0.039.? Lipase was normal.? Chest x-ray with no acute cardiopulmonary disease cardiology has been consulted.? Echo ordered which is pending.? Continue Coreg spontaneously converted to sinus rhythm while in the hospital.? Lovenox therapeutic dosing.? Serial troponin remained negative.? LDL 113.? Received a dose of aspirin.? Will resume 81 mg of aspirin daily.? cardiology evaluated. Echo was done which short LVEF 61% no pulmonary hypertension no significant valvular disease. TSH normal . He will stay on aspirin 325 mg daily because of low chads Vasc score. Patient will follow-up with cardiology as an outpatient basis for stress test if recurrence he will need EP referral which will be arranged as an outpatient basis. Time Spent with Patient Time attestation: Total time spent providing and/or coordinating discharge services: 35 minutes Exam Narrative: GENERAL: Generally well appearing, alert and oriented, in no apparent distress. NECK: The patient has no noted JVD. No adenopathy is appreciated. CHEST/LUNGS: Lungs are clear bilaterally without rhonchi, rales, or wheezes. There is no subcutaneous air appreciated. There is no tenderness to the chest wall. HEART: regular rate and rhythm ABDOMEN: The patient?s abdomen is soft, nontender, and nondistended. Bowel sounds are positive. No organomegaly is appreciated. No masses are appreciated. There are no peritoneal signs. There is no Dougherty?s sign. EXTREMITIES: The patient has no peripheral edema. There is no focal long bone tenderness or deformity. SKIN: The patient?s skin is warm and dry, without rashes or lesions. PSYCHIATRIC: The patient has normal mental status and has an appropriate affect. NEUROLOGIC: There are no gross deficits to the cranial nerves. Patient ambulates with steady gait. DS: Data Data Completed and Pending Completed studies during hospitalization: Exam Type: ? ? CA echo doppler color flow Study Info Indications ?? ? - New onset fib Complete two-dimensional, color flow and Doppler transthoracic echocardiogram is performed. Account #: ? ? [id number] Summary ? 1. Complete two-dimensional, color flow and Doppler transthoracic echocardiogram is performed. ? 2. Ventricular size with mild concentric hypertrophy.? Good systolic function of all segments with ejection fraction 61%.? Normal diastolic function. ? 3. Left atrial chamber dimension is mildly enlarged. ? 4. No pulmonary hypertension, estimated pulmonary arterial systolic pressure is 26 mmHg. ? 5. No significant valve disease. ? 6. Normal sinus rhythm. Left Ventricle ? Left ventricular chamber dimension is normal. ? Left ventricular systolic function is normal, estimated at 60-65%. ? There is mildly increased left ventricular wall thickness. ? Left ventricular septal wall motion is normal. ? The left ventricular diastolic function is normal. Right Ventricle ? Right ventricular chamber dimension is normal. ? Right ventricular systolic function is normal. Left Atria ? Left atrial chamber dimension is mildly enlarged. Right Atria ? Right atrial chamber dimension is normal. Aortic Valve ? Th
== END 2023-05-17 15:46 | disposition home or self-care (01) ==
LOC: ANHED 13:18 → ANHIMU 05-17 15:30
PROVIDERS: Nurse Practitioner; Admitting Provider Chiropractor; Emergency Provider Emergency Medicine; PCP Family Medicine Sports Medicine; Visit Provider Internal Medicine
DX: I48.91 Unspecified atrial fibrillation (principal); R77.8 Other specified abnormalities of plasma proteins; I10 Essential (primary) hypertension; I24.9 Acute ischemic heart disease, unspecified; Z82.49 Family history of ischemic heart disease and other diseases of the circulatory system; F10.90 Alcohol use, unspecified, uncomplicated; Z79.899 Other long term (current) drug therapy
CPT/HCPCS: 36415; 71046; 80053; 80061; 83690; 84443; 84484; 85025; 85055; 85610; 85730; 93005; 93306; 96372; 99285; A9270; G0378; J1650

== ENCOUNTER → 2023-08-25 15:12 | Outpatient (CLI) | payer BC, SELFPAY ==
--- NOTE | ~2023-08-25 | CT_ITS ---
EXAMINATION: CT sinus wo con DATE: 08/25/2023 15:23 INDICATION: Chronic pansinusitis. Prior sinus surgery. TECHNIQUE: Computed tomography (CT) of the paranasal sinuses was performed without contrast. Iterativ e reconstruction technique was employed. Exam dose: 280.89 mGy-cm total exam DLP. COMPARISON: None FINDINGS: Leftward deviation of nasal septum. There is relatively symmetric prominent soft tissue swelling of the nasal turbinates. Right nasal antral window is patent. There is soft tissue thickening at the left maxillary ostium and infundibulum narrowing but not occlu ding the left ostiomeatal unit. There is moderately prominent mucoperiosteal thickening of left maxillary sinus and minimal mucoperio steal thickening of the right maxillary sinus. There is mild mucoperiosteal thickening of the lower a nd anterior portion of the right sphenoid sinus and slight mucoperiosteal thickening at the inferomed ial base of the left sphenoid sinus. There is minimal focal soft tissue thickening the ethmoid air ce lls. The frontal sinuses are clear. No mastoid effusions are noted. Middle and inner ear apparatus are unremarkable. IMPRESSION: Moderate left and mild right maxillary periosteal thickening Mild right and slight left sphenoid mucoperiosteal thickening Right nasal antral window appears patent Narrowing of the left ostiomeatal complex by soft tissue thickening of the left maxillary ostium and infundibulum Reviewed, dictated and finalized at [facility]. Reviewed, dictated and finalized at [facility] [employer]
== END ==
PROVIDERS: PCP Otolaryngology; Visit Provider Otolaryngology
DX: J32.4 Chronic pansinusitis (principal)
CPT/HCPCS: 70486